=== PATIENT | male | born 1990 | race Caucasian/White ===

== ENCOUNTER 2020-01-07 05:28 | Emergency (ER) | payer SELFPAY ==
[~2020-01-07] VITALS: Ht 182.9 cm; Wt 129.3 kg
[2020-01-07 05:34] VITALS: BP 168/73
--- NOTE | 2020-01-07 05:39 | NUR ---
PT TAKEN TO BED 2
[2020-01-07] MEDS ORDERED: LISINOPRIL 20 MG TAB PO ONE (05:40)
--- NOTE | 2020-01-07 05:45 | NUR ---
PT 29 Y/O MALE BIB SELF FOR C/O CHEST "TIGHTNESS AND PRESSURE" X 1 DAY. PT AAO X4. PT STATES "IT'S NOT PAIN JUST DISCOMFORT" X 1 DAY. PT STATES 0/10 PAIN NO RADIATING PRESSURE. CURRENTLY RESPIRATIONS ARE EVEN AND UNLABORED BUT PT STATES HE HAS SOB AT HOME. "I'VE ALSO BEEN FEELING ANXITY BECAUSE I'M GOING TO HAVE A KID AND ALL THIS [place] VIRUS STUFF IS SCARY." PT ADMITS TO BEING A SMOKER X 10 YEARS AND SMOKES 1 PACK EVERY 2 DAYS. SKIN IS WARM AND DRY TO TOUCH. VSS. DENIES COUGH, N/V/D. PT ON MONITOR. BED LOCKED AND IN LOWEST POSITION. MEDHX: NONE ALLERGIES: SHELLFISH
--- NOTE | 2020-01-07 05:53 | NUR ---
EGK DONE BY EMT AT BEDSIDE.
[2020-01-07 06:02] LABS: BASOPHILS # (AUTO) 0.1 K/uL (0.00-0.22); BASOPHILS % (AUTO) 0.9 % (0.0-2.0); EOSINOPHILS # (AUTO) 0.1 K/uL (0-0.4); EOSINOPHILS % (AUTO) 1.5 % (0.0-4.0); HEMATOCRIT 47.7 % (36-52); HEMOGLOBIN 16.3 g/dL (12.0-18.0); LYMPHOCYTES # (AUTO) 2.5 K/uL (2.0-11.5); LYMPHOCYTES % (AUTO) 40.8 % (20.5-51.1); MEAN CORPUSCULAR HEMOGLOBIN 30 pg (27-31); MEAN CORPUSCULAR HGB CONC 34 g/dL (33-37); MEAN CORPUSCULAR VOLUME 88.9 fL (80-94); MONOCYTES # (AUTO) 0.6 K/uL (0.8-1.0); MONOCYTES % (AUTO) 9.8 % (1.7-9.3); NEUTROPHILS # (AUTO) 2.9 K/uL (1.8-7.7); PLATELET COUNT (AUTO) 250 K/uL (140-450); RED BLOOD CELL COUNT(AUTO) 5.36 MIL/uL (4.20-6.10); RED CELL DISTRIBUTION WIDTH 12.6 % (11.6-13.7); WHITE BLOOD COUNT (AUTO) 6.1 K/uL (4.8-10.8)
[2020-01-07 06:21] LABS: ANION GAP 13.1 (8-16); CARBON DIOXIDE 28.3 mmol/L (21-32); CREATININE 1.1 mg/dL (0.6-1.3); POTASSIUM 3.4 mmol/L (3.5-5.1)
[2020-01-07 06:38] LABS: ALBUMIN 3.9 g/dL (3.4-5.0); TOTAL BILIRUBIN 0.6 mg/dL (0.0-1.0)
--- NOTE | 2020-01-07 06:52 | NUR ---
PT STATES CHEST PRESSURE "FEELS A LOT BETTER." PT ON MONITOR VSS. RESPIRATIONS ARE EVEN AND UNLABORED. SKIN IS WARM AND DRY TOUCH.
[2020-01-07 07:00] VITALS: BP 129/69
--- NOTE | 2020-01-07 07:00 | NUR ---
Patient discharged with v/s stable. Written and verbal after care instructions given and explained. Patient alert, oriented and verbalized understanding of instructions. Ambulatory with steady gait. All questions addressed prior to discharge. ID band removed. Patient advised to follow up with PMD. Rx of LISINOPRIL given. Patient educated on indication of medication including possible reaction and side effects. Opportunity to ask questions provided and answered.
== END 2020-01-07 07:00 | disposition home or self-care (01) ==
LOC: MED 05:28
DX: I10 Essential (primary) hypertension (principal); R07.2 Precordial pain; F17.200 Nicotine dependence, unspecified, uncomplicated
CPT/HCPCS: 36415; 80053; 84484; 85025; 99283